=== PATIENT | female | born 1940 | race Caucasian/White ===

== ENCOUNTER 2018-02-03 05:28 | Day surgery (SDC) | payer OTHER ==
[2018-02-03] MEDS ORDERED: LIDOCAINE 2% (SDV) 5 ML INJ (07:00)
[2018-02-03] MEDS ORDERED: CEFAZOLIN 1 GM INJ (07:00)
[2018-02-03] MEDS ORDERED: ROCURONIUM 50 MG INJ (07:00)
[2018-02-03] MEDS ORDERED: GLYCOPYRROLATE 0.4 MG INJ (07:00)
[2018-02-03] MEDS ORDERED: NEOSTIGMINE 3 MG/3 ML SYRINGE (07:00)
[2018-02-03] MEDS ORDERED: DEXAMETHASONE 4 MG/ML 1 ML INJ (07:00)
[2018-02-03] MEDS ORDERED: ONDANSETRON 4 MG INJ (07:00)
[2018-02-03] MEDS ORDERED: LACTATED RINGER'S 1,000 ML IV (07:00)
[2018-02-03] MEDS ORDERED: HYDROCORTISONE 100 MG INJ (07:32)
[2018-02-03] MEDS ORDERED: PROPOFOL 20 ML (07:32)
[2018-02-03] MEDS ORDERED: PHENYLephrine (100 MCG/ML) 5ML SYG (07:41)
[2018-02-03] MEDS: ROPIVACAINE 0.5 % 30 ML VIAL (08:04)
[2018-02-03] MEDS: POLYMYXIN/BACITRACIN 1L IRRIG (08:05)
[2018-02-03] MEDS: POVIDONE IODINE 10% 28.4 GM OINT (08:05)
[2018-02-03] MEDS ORDERED: KETOROLAC 30 MG INJ (08:40)
[2018-02-03] MEDS ORDERED: SOD CHLORIDE 0.9% 1,000 ML IV (08:58)
[2018-02-03] MEDS ORDERED: ONDANSETRON 4 MG INJ IV ×2 (09:00→09:30)
[2018-02-03] MEDS ORDERED: OXYCODONE/ACETAMINOPHEN (5/325) TAB PO ×4 (09:00→09:30)
[2018-02-03] MEDS ORDERED: morphine 2 MG INJ IV (09:00)
[2018-02-03] MEDS: HYDROmorphONE 1 MG/5 ML IV SYRINGE IV (09:15)
[2018-02-03] MEDS ORDERED: FENTAnyl 50 MCG/ML VIAL IV ×3 (09:30)
[2018-02-03] MEDS ORDERED: DIPHENHYDRAMINE 50 MG INJ IV (09:30)
[2018-02-03] MEDS ORDERED: MEPERIDINE 25 MG INJ IV (09:30)
[2018-02-03] MEDS ORDERED: ALBUTEROL 0.083% (NEB) 2.5 MG/3 ML AMP HHN (09:30)
[2018-02-03] MEDS ORDERED: HYDROmorphONE 1 MG/5 ML IV SYRINGE IV ×2 (09:30)
[2018-02-03] MEDS ORDERED: EPHEDrine SULFATE 50 MG/5 ML SYG IV (09:30)
[2018-02-03] MEDS ORDERED: hydrALAzine 20 MG INJ IV (09:30)
[2018-02-03] MEDS: METOCLOPRAMIDE 10 MG INJ IV (10:44)
== END 2018-02-03 11:15 | disposition home or self-care (01) ==
LOC: SDS 05:28
DX: T84.84XA Pain due to internal orthopedic prosthetic devices, implants and grafts, initial encounter (principal); Y79.8 Miscellaneous orthopedic devices associated with adverse incidents, not elsewhere classified
CPT/HCPCS: 20680; 73610; 88300